=== PATIENT | female | born 1955 | race Caucasian/White ===

== ENCOUNTER → 2016-07-22 | Outpatient (CLI) | payer MEDICAID | LOC: FIMAGING 15:29 | DX: R06.02 Shortness of breath (principal) ==

== ENCOUNTER → 2016-07-22 | Outpatient (CLI) | payer MEDICAID | LOC: FIMAGING 13:20 | DX: Z12.39 Encounter for other screening for malignant neoplasm of breast (principal); N64.4 Mastodynia; R06.02 Shortness of breath | CPT/HCPCS: G0204 ==

== ENCOUNTER → 2017-02-12 | Outpatient (CLI) | payer MEDICAID | LOC: FIMAGING 13:27 | PROVIDERS: ATTEND Physician Assistant Medical | DX: Z12.39 Encounter for other screening for malignant neoplasm of breast (principal); N64.4 Mastodynia ==